=== PATIENT | male | born 1945 | race Caucasian/White ===

== ENCOUNTER 2017-08-13 20:06 | Emergency (ER) | payer MEDICARE ==
[~2017-08-13 20:06] MED LIST: Iopamidol 370 76% 100 ML VIAL ONE; Sodium Chloride 0.9% 1,000 ML BAG ONE
[2017-08-13] MEDS ORDERED: Ondansetron HCl/PF 4 MG/2 ML Vial ONE (20:29)
[2017-08-13 20:42] LABS: Mean Corpuscular Volume 69.8 fl (80.0-94.0)
[2017-08-13 20:43] LABS: #Basophils 0.1 thou/uL (0.0-0.2); #Eosinphils 0.2 thou/uL (0.0-0.7); #Monocytes 0.9 thou/uL (0.11-0.59); #Neutrophils 4.8 thou/uL (1.40-6.50); %Eosinophils 1.8 % (0.0-10.0); %Lymphocytes 33.5 % (21.0-51.0); %Monocytes 9.6 % (0.0-10.0); %Neutrophils 54.1 % (42.0-75.0); Hemoglobin 12.4 g/dL (14.0-18.0); MDiff Complete? YES; Macrocytosis SLIGHT = 6-15 cells (100X) (0-5/hpf); Mean Corpuscular HGB CONC 30.1 g/dL (32.0-36.0); Mean Platelet Volume 5.8 fL (7.4-10.4); Microcytosis SLIGHT = 6-15 cells (100X) (0-5/hpf); Ovalocytes MODERATE= 6-15 cells (100X) (0-1/hpf); PLT Morphology Comment Appears Adequate; Platelet Count 180 thou/uL (130-400); RBC Distribution Width 14.2 % (11.5-14.5); RBC Morphology ABNORMAL; Red Blood Cell (RBC) Count 5.89 mill/uL (4.70-6.10); Schistocytes SLIGHT = 2-5 cells (100X) (0-1/hpf); Target Cells SLIGHT = 2-5 cells (100X) (0-1/hpf); White Blood Cell (WBC) Count 8.9 thou/uL (4.8-10.8)
[2017-08-13 20:45] LABS: ALT (SGPT) 36 U/L (8-55); AST (SGOT) 40 U/L (5-34); Albumin 4.3 g/dL (3.4-4.8); Alkaline Phosphatase 63 U/L (40-150); Anion Gap 16 mmol/L (10-20); BUN (Urea Nitrogen) 28 mg/dL (8.4-25.7); Bilirubin, Total 0.9 mg/dL (0.2-1.2); CKMB 2.7 ng/mL (0-6.6); Calc. Creatinine Clearance 0 mL/min (70-130); Calcium 9.4 mg/dL (7.8-10.44); Carbon Dioxide 26 mmol/L (23-31); Chloride 103 mmol/L (98-107); Estimated GFR-MDRD 77; Globulin 3.1 g/dL (2.4-3.5); Glucose 100 mg/dL (83-110); Lipase 30 U/L (8-78); Potassium 3.7 mmol/L (3.5-5.1); Protein, Total 7.4 g/dL (5.8-8.1); Sodium 141 mmol/L (136-145); Troponin I 0.013 ng/mL (< 0.028)
[2017-08-13 21:08] LABS: Clarity Clear (Clear); Specific Gravity, Urine 1.025 (1.005-1.030)
[2017-08-13 21:09] LABS: Bilirubin Negative (Negative); Blood, Urine Negative (Negative); Glucose, Urine (Dipstick) Negative (Negative); Leukocyte Negative (Negative); Nitrite Negative (Negative); Protein, Urine (Dipstick) Negative (Neg-Trace); Urobilinogen 0.2 mg/dL (0.2-1.0); pH, Urine 5.5 (5.0-9.0)
--- NOTE | 2017-08-13 21:25 | RAD ---
PA AND LATERAL CHEST X-RAY 08/13/17 HISTORY: Trauma. Tractor hit a tree at 1430 hours today. Chest and rib pain. COMPARISON: 01/04/15. Postsurgical changes related to median sternotomy again seen. The cardiac silhouette and pulmonary v asculature are within normal limits. The lungs remain clear. There is no pneumothorax or pleural eff usion identified. Vascular calcification seen in the thoracic aorta. There is calcification in the a nterior longitudinal ligament with degenerative change in the spine. No obvious fractures appreciate d. IMPRESSION: No acute cardiopulmonary process. POS: [facility]
[2017-08-13] MEDS ORDERED: Nitroglycerin 0.4 MG TAB 1 EACH ONE (21:50)
--- NOTE | 2017-08-14 00:23 | CT ---
CT ABDOMEN AND PELVIS WITHOUT IV CONTRAST 08/13/2017 HISTORY: Left upper quadrant abdominal pain after trauma. COMPARISON: CTA chest and abdomen on 12/06/2015. FINDINGS: The lung bases are clear without evidence of pleural effusion or pneumothorax at either lung base. Post-cholecystectomy changes are again present. There is a subcentimeter cyst again seen in the inferior pole right kidney as well as the superior p ole left kidney, unchanged in appearance or size compared to the prior exam. The liver, spleen, pancreas, bilateral adrenal glands, and decompressed urinary bladder demonstrate a grossly normal non-enhanced CT appearance. Lack of intravenous contrast does limit sensitivity fo r evaluation of parenchymal organ injury. However, there is no free fluid or free intraperitoneal g as seen in the abdomen or pelvis. Vascular calcifications seen in the abdominal aorta and involving the iliac arteries. There is colonic diverticulosis. Degenerative changes are seen in the spine. Mild bilateral hip osteoarthritis. There is a prominent fat-containing ventral abdominal wall hernia in the epigastric region. There is minimal subcutaneous edema seen in the subcutaneous soft tissues upper abdomen which may be related to recent injury. There is no evidence of a hematoma in the subcutaneous soft tissues. No fractures are visualized involving the lower ribs. There is partial visualization of median sterno zaki wires. IMPRESSION: 1. No acute findings are seen on this non-enhanced CT scan of the abdomen and pelvis. No free fluid or free intraperitoneal gas is seen in the abdomen or pelvis. 2. Bilateral renal cysts. 3. Post-cholecystectomy changes. 4. Colonic diverticulosis. 5. Prominent fat-containing ventral abdominal wall hernia in the epigastric region. 6. Mild subcutaneous edema anterior upper abdomen. POS: [facility]
== END 2017-08-13 22:27 | disposition home or self-care (01) ==
LOC: MADERS 20:06
DX: S20.212A Contusion of left front wall of thorax, initial encounter (principal); F32.9 Major depressive disorder, single episode, unspecified; F41.9 Anxiety disorder, unspecified; I25.10 Atherosclerotic heart disease of native coronary artery without angina pectoris; I10 Essential (primary) hypertension; Z87.891 Personal history of nicotine dependence; W22.8XXA Striking against or struck by other objects, initial encounter
CPT/HCPCS: 71020; 74176; 80053; 81003; 82553; 83690; 84484; 85025; 93005; 96361; 96374; 96375; J1170; J2405; J7050

== ENCOUNTER 2018-02-01 12:54 | Emergency (ER) | payer MEDICARE ==
--- NOTE | 2018-02-01 14:58 | RAD ---
RIGHT KNEE 4 VIEWS: HISTORY: A 72-year-old male with a history of right knee pain following injury. FINDINGS: There are total knee arthroplasty changes on the right side. No dislocation or periprosthetic fractu re. IMPRESSION: Status post total knee arthroplasty. No acute fracture or dislocation. POS: [facility]
== END 2018-02-01 13:49 | disposition home or self-care (01) ==
LOC: MADERS 12:54
DX: S80.01XA Contusion of right knee, initial encounter (principal); F41.9 Anxiety disorder, unspecified; I10 Essential (primary) hypertension; I25.10 Atherosclerotic heart disease of native coronary artery without angina pectoris; F32.9 Major depressive disorder, single episode, unspecified; M46.90 Unspecified inflammatory spondylopathy, site unspecified; Z87.891 Personal history of nicotine dependence; Z79.02 Long term (current) use of antithrombotics/antiplatelets; Z79.899 Other long term (current) drug therapy; W22.8XXA Striking against or struck by other objects, initial encounter

== ENCOUNTER 2020-01-26 11:10 | Emergency (ER) | payer MEDICARE | END 2020-01-26 11:58 | disposition home or self-care (01) | LOC: MADERS 11:10 | DX: T63.331A Toxic effect of venom of brown recluse spider, accidental (unintentional), initial encounter (principal); F41.9 Anxiety disorder, unspecified; F32.9 Major depressive disorder, single episode, unspecified; I25.10 Atherosclerotic heart disease of native coronary artery without angina pectoris; M19.90 Unspecified osteoarthritis, unspecified site; I10 Essential (primary) hypertension; Z87.891 Personal history of nicotine dependence | CPT/HCPCS: 99283 ==

== ENCOUNTER 2021-05-06 15:55 | Emergency (ER) | payer MEDICARE ==
[2021-05-06] MEDS ORDERED: HYDROcodone/Acetaminophen 5/325 mg Tablet ONE (16:31)
== END 2021-05-06 16:47 | disposition home or self-care (01) ==
LOC: MADERS 15:55
DX: B02.9 Zoster without complications (principal); I25.10 Atherosclerotic heart disease of native coronary artery without angina pectoris; I10 Essential (primary) hypertension; M19.90 Unspecified osteoarthritis, unspecified site; Z87.891 Personal history of nicotine dependence
CPT/HCPCS: 93005

== ENCOUNTER 2022-02-11 16:29 | Emergency (ER) | payer MEDICARE ==
[2022-02-11] MEDS ORDERED: Nitroglycerin 0.4 MG TAB 1 EACH ONE ×2 (16:49→17:40)
[2022-02-11 17:01] LABS: PTT 31.8 sec (22.9-36.1); Prothrombin Time 13.4 sec (12.0-14.7)
[2022-02-11 17:09] LABS: ALT (SGPT) 18 U/L (8-55); AST (SGOT) 28 U/L (5-34); Albumin 4.3 g/dL (3.4-4.8); Alkaline Phosphatase 64 U/L (40-110); Anion Gap 14 mmol/L (10-20); BUN (Urea Nitrogen) 26 mg/dL (8.4-25.7); CK (CPK) 99 U/L (30-200); Calc. Creatinine Clearance 0 mL/min (70-130); Calcium 9.6 mg/dL (7.8-10.44); Carbon Dioxide 27 mmol/L (23-31); Chloride 103 mmol/L (98-107); Globulin 2.9 g/dL (2.4-3.5); Glucose 113 mg/dL (83-110); Potassium 3.8 mmol/L (3.5-5.1); Protein, Total 7.2 g/dL (5.8-8.1); Sodium 140 mmol/L (136-145)
[2022-02-11 17:11] LABS: CKMB 2.4 ng/mL (0-6.6)
[2022-02-11 17:21] LABS: #Basophils 0.1 thou/uL (0.0-0.2); #Eosinphils 0.1 thou/uL (0.0-0.7); #Lymphocytes 2.5 thou/uL (1.20-3.40); #Monocytes 0.6 thou/uL (0.11-0.59); #Neutrophils 3.7 thou/uL (1.40-6.50); %Basophils 1.4 % (0.0-1.0); %Eosinophils 1.3 % (0.0-10.0); %Lymphocytes 36.1 % (21.0-51.0); %Monocytes 8.4 % (0.0-10.0); %Neutrophils 52.9 % (42.0-75.0); MDiff Complete? YES; Mean Corpuscular HGB CONC 29.7 g/dL (32.0-36.0); Mean Corpuscular Hemoglobin 20.6 pg (27.0-31.0); Mean Corpuscular Volume 69.2 fL (78.0-98.0); Microcytosis SLIGHT = 6-15 cells (100X) (0-5/hpf); Platelet Count 215 thou/uL (130-400); Polychromasia SLIGHT = 2-3 cells (100X) (0-2/hpf); RBC Distribution Width 13.5 % (11.5-14.5); Red Blood Cell (RBC) Count 5.36 mill/uL (4.70-6.10); Target Cells SLIGHT = 2-5 cells (100X) (0-1/hpf); White Blood Cell (WBC) Count 6.9 thou/uL (4.8-10.8)
[2022-02-11] MEDS ORDERED: Morphine 4 MG/ML VIAL ONE (19:45)
[2022-02-11] MEDS ORDERED: Enoxaparin Sodium 100 MG/ML SYRINGE ONE (19:45)
== END 2022-02-11 21:23 | disposition short-term general hospital (02) ==
LOC: MADERS 16:29
DX: R07.2 Precordial pain (principal); M19.09 Primary osteoarthritis, other specified site; I25.10 Atherosclerotic heart disease of native coronary artery without angina pectoris; I10 Essential (primary) hypertension; Z87.891 Personal history of nicotine dependence; Z79.899 Other long term (current) drug therapy; Z79.82 Long term (current) use of aspirin; Z79.02 Long term (current) use of antithrombotics/antiplatelets
CPT/HCPCS: 71045; 71275; 74174; 80053; 82550; 82553; 84484; 85025; 85610; 85730; 94760; 96372; 96374; J1650; J2270

== ENCOUNTER 2023-07-11 11:53 | Emergency (ER) | payer MEDICARE ==
[2023-07-11 12:43] LABS: #Basophils 0.1 thou/uL (0.0-0.2); #Eosinphils 0.1 thou/uL (0.0-0.7); #Lymphocytes 1.8 thou/uL (1.20-3.40); #Monocytes 0.5 thou/uL (0.11-0.59); #Neutrophils 3.1 thou/uL (1.40-6.50); %Eosinophils 2.4 % (0.0-10.0); %Lymphocytes 31.8 % (21.0-51.0); %Monocytes 9.3 % (0.0-10.0); %Neutrophils 55.5 % (42.0-75.0); Hematocrit 40.5 % (42.0-52.0); Hemoglobin 12.2 g/dL (14.0-18.0); Mean Corpuscular Hemoglobin 21.1 pg (27.0-31.0); Mean Corpuscular Volume 70.2 fl (78.0-98.0); Mean Platelet Volume 6.5 fL (7.4-10.4); Platelet Count 224 10x3/uL (130-400); RBC Distribution Width 14.5 % (11.5-14.5); Red Blood Cell (RBC) Count 5.77 mill/uL (4.70-6.10); White Blood Cell (WBC) Count 5.7 10x3/uL (4.8-10.8)
[2023-07-11 12:44] LABS: Anisocytosis SLIGHT = 6-15 cells (100X) (0-5/hpf); Hypochromia MODERATE=16-30 cells (100X) (0-5/hpf); MDiff Complete? YES; Microcytosis SLIGHT = 6-15 cells (100X) (0-5/hpf); Platelet Adequacy Comment Appears Adequate; Target Cells SLIGHT = 2-5 cells (100X) (0-1/hpf)
[2023-07-11 12:50] LABS: ALT (SGPT) 20 U/L (8-55); AST (SGOT) 31 U/L (5-34); Albumin 4.5 g/dL (3.4-4.8); Alkaline Phosphatase 69 U/L (40-110); Anion Gap 17 mmol/L (10-20); BUN (Urea Nitrogen) 21 mg/dL (8.4-25.7); Bilirubin, Total 1.2 mg/dL (0.2-1.2); Calc. Creatinine Clearance 0 mL/min (70-130); Carbon Dioxide 28 mmol/L (23-31); Chloride 99 mmol/L (98-107); Estimated GFR 65; Globulin 3.3 g/dL (2.4-3.5); Glucose 98 mg/dL (83-110); Potassium 4.7 mmol/L (3.5-5.1); Protein, Total 7.8 g/dL (5.8-8.1); Sodium 139 mmol/L (136-145)
[2023-07-11 12:57] LABS: Bilirubin Moderate (Negative); Blood, Urine Negative (Negative); Clarity Clear (Clear); Glucose, Urine (Dipstick) Negative (Negative); Ketone, Urine 15 mg/dL (Negative); Leukocyte Negative (Negative); Nitrite Negative (Negative); Protein, Urine (Dipstick) 30 mg/dL (Neg-Trace)
[2023-07-11 12:58] LABS: Bacteria/HPF Rare-Few HPF (None Seen); CAUTI Indications for Culture Pelvic or flank pain; Mucous/LPF 3+ LPF (<2+); RBC/HPF None Seen HPF (0-3); Specific Gravity, Urine 1.032 (1.002-1.036); Squamous Epithelial 0-3 HPF (0-3); WBC/HPF None Seen HPF (0-3)
[2023-07-11 12:59] LABS: Urine Culture Reflex No No
== END 2023-07-11 13:15 | disposition home or self-care (01) ==
LOC: MADERS 11:53
DX: M54.50 Low back pain, unspecified (principal); I25.10 Atherosclerotic heart disease of native coronary artery without angina pectoris; I10 Essential (primary) hypertension; Z87.891 Personal history of nicotine dependence
CPT/HCPCS: 36415; 74176; 80053; 81001; 85025

== ENCOUNTER 2023-09-04 08:38 | Emergency (ER) | payer MEDICARE | END 2023-09-04 10:00 | disposition home or self-care (01) | LOC: MADERS 08:38 | DX: S06.9X1A Unspecified intracranial injury with loss of consciousness of 30 minutes or less, initial encounter (principal); S30.0XXA Contusion of lower back and pelvis, initial encounter; S70.01XA Contusion of right hip, initial encounter; I10 Essential (primary) hypertension; I25.10 Atherosclerotic heart disease of native coronary artery without angina pectoris; W18.30XA Fall on same level, unspecified, initial encounter; Y93.89 Activity, other specified; Y92.009 Unspecified place in unspecified non-institutional (private) residence as the place of occurrence of the external cause; Z87.891 Personal history of nicotine dependence; Z79.82 Long term (current) use of aspirin; Z79.899 Other long term (current) drug therapy | CPT/HCPCS: 70450; 72170 ==

== ENCOUNTER 2024-04-13 06:17 | Emergency (ER) | payer MEDICARE, OTHER ==
[2024-04-13] MEDS ORDERED: Morphine 4 MG/ML VIAL ONE (06:41)
== END 2024-04-13 08:30 | disposition home or self-care (01) ==
LOC: MADERS 06:17
DX: S30.1XXA Contusion of abdominal wall, initial encounter (principal); S09.90XA Unspecified injury of head, initial encounter; I10 Essential (primary) hypertension; Z87.891 Personal history of nicotine dependence; Z79.82 Long term (current) use of aspirin; Z79.899 Other long term (current) drug therapy; W01.111A Fall on same level from slipping, tripping and stumbling with subsequent striking against power tool or machine, initial encounter; Y92.34 Swimming pool (public) as the place of occurrence of the external cause
CPT/HCPCS: 70450; 72125; 74176; 96372; J2270